=== PATIENT | female | born 2000 | race Caucasian/White ===

== ENCOUNTER 2024-05-18 19:40 | Emergency (ER) | payer MEDICAID, OTHER ==
[~2024-05-18] VITALS: Ht 165.1 cm; Wt 80.0 kg
[2024-05-18 19:55] VITALS: O2SAT 100
[2024-05-18] MEDS: TETANUS, DIPHTHERIA, PERTUSSIS VAC/PF 0.5ML (>10YR OLD) IM ONE (20:30)
[2024-05-18] MEDS: LIDOCAINE HCL 1% 20ML VIAL INFIL ONE (21:25)
[2024-05-18 23:33] VITALS: BP 120/70; PULSE 80; RESP 18; TEMP 98.1
== END 2024-05-18 23:33 | disposition home or self-care (01) ==
LOC: ER 19:40
DX: S61.411A Laceration without foreign body of right hand, initial encounter (principal); W26.2XXA Contact with edge of stiff paper, initial encounter; Y93.89 Activity, other specified; Y92.89 Other specified places as the place of occurrence of the external cause; Y99.8 Other external cause status
CPT/HCPCS: 12001; 99282; J3490; Z7610; 90715